=== PATIENT | female | born 1950 | race Caucasian/White ===

== ENCOUNTER 2020-09-02 14:50 | Emergency (ER) | payer OTHER ==
[2020-09-02 14:59] VITALS: BP 191/73; PULSE 64; TEMP 98.1; BMI 26.2
[2020-09-02] MEDS ORDERED: LIDOCAINE HCL 2% (20ML MULTI-DOSE VIAL) ONE (16:53)
== END 2020-09-02 18:18 | disposition home or self-care (01) ==
LOC: FER 14:50
DX: S62.101A Fracture of unspecified carpal bone, right wrist, initial encounter for closed fracture (principal)
CPT/HCPCS: 73110-TC-RT-FY; 73130-TC-RT-FY; 73502-TC-RT-FY; 99284-25